=== PATIENT | male | born 1950 | race Caucasian/White ===

== ENCOUNTER 2019-12-05 08:43 | Outpatient (CLI) | payer MEDICARE, SELFPAY ==
--- NOTE | ~2019-12-05 | CT_ITS ---
EXAMINATION: CT chest abdomen pelvis w con DATE: 12/05/2019 09:11 INDICATION: History of rectal cancer with liver metastases TECHNIQUE: Transaxial computed tomographic images of the chest, abdomen, and pelvis were obtained aft er the administration of 100 cc of Omnipaque 350 intravenous contrast. The dose-length product (DLP) was 529.89 mGy-cm. Automated exposure control and iterative reconstruction technique were employed. COMPARISON: 09/05/2019, 03/03/2019, 03/24/2018 FINDINGS: CHEST CT: A right subclavian Port-A-Cath ends with its tip in the distal superior vena cava. There are patchy g roundglass opacities in the lower lobes as well as in the right upper lobe. Previously described lung nodules are obscured by airspace opacities. There is a small right pleural effusion. No pneumothorax is identified. There is bilateral gynecomastia, left greater than right. The heart size is normal. T here are bridging osteophytes at multiple levels in the spine, consistent with diffuse idiopathic ske letal hyperostosis (DISH). ABDOMEN/PELVIS CT: There are changes of left hemihepatectomy. No suspicious liver mass is identified. The spleen, pancre as, gallbladder, and adrenal glands are normal. The kidneys are unremarkable. No pathologically enlar ged abdominal or pelvic lymph nodes are identified. There is no free intraperitoneal gas or evidence of bowel obstruction. Surgical changes are noted in the rectum as well as in the small bowel. There i s a large fat-containing left inguinal hernia. There is moderate lumbar spondylosis. A moderate volu me of colonic stool is present. IMPRESSION: 1. Airspace opacities of the lower lobes and right upper lobe, consistent with multifocal pneumonia. 2. Airspace opacities of the lungs obscure previously described lung nodules which remain indetermina te. 3. Changes of left hemihepatectomy without evidence of metastatic disease in the abdomen or pelvis. 4. Small right pleural effusion. Reviewed, dictated and finalized at location A. IMPRESSION: 1. Airspace opacities of the lower lobes and right upper lobe, consistent with multifocal pneumonia. 2. Airspace opacities of the lungs obscure previously described lung nodules wh ich remain indeterminate. 3. Changes of left hemihepatectomy without evidence of metastatic disease in e abdomen or pelvis. 4. Small right pleural effusion.
== END 2019-12-05 08:44 | disposition home or self-care (01) ==
LOC: ANHIMG 08:46
PROVIDERS: Visit Provider Internal Medicine Hematology & Oncology
DX: C78.7 Secondary malignant neoplasm of liver and intrahepatic bile duct (principal); R91.8 Other nonspecific abnormal finding of lung field; Z98.890 Other specified postprocedural states; J90 Pleural effusion, not elsewhere classified
CPT/HCPCS: 71260; 74177; Q9967

== ENCOUNTER 2020-03-26 10:15 | Outpatient (CLI) | payer MEDICARE, SELFPAY ==
--- NOTE | ~2020-03-26 | CT_ITS ---
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 Automated exposure control and iterative reconstruction technique were employed. Exam dose: 524.51 mGy-cm total exam DLP. COMPARISON: 12/05/2019 CT chest abdomen pelvis FINDINGS: CHEST CT: There are consolidating infiltrates with air bronchograms in the superior segments of both lower lobe s. There is right perihilar consolidation with air bronchograms, with extension into the right upper lobe. Old pulmonary granulomatous disease is noted bilaterally. No significant new or enlarging pulmonary nodule since 12/05/2019. Coronary artery calcifications. Normal heart size. No hilar or mediastinal mass lesion or lymphadenop athy is evident. Normal heart size. No pericardial or pleural effusion. There is a right subclavian Port-A-Cath catheter in the superior vena cava. Small sliding hiatal hernia. . ABDOMEN/PELVIS CT: Status post left partial hepatectomy. No hepatic space-occupying mass lesion or bile duct or pancreat ic duct dilatation. No pancreatic mass lesion or calcification is evident. Normal splenic size. Normal morphology of the adrenal glands. The kidneys are unremarkable. No urinary tract calculus or hydroureteronephrosis. Normal caliber of the abdominal aorta. No intraperitoneal or retroperitoneal or pelvic mass lesion or adenopathy or ascites. Prostate enlargement and calcifications. There is diffuse thickening of the urinary bladder wall, also present on 12/05/2019. Large fat-containing left inguinal hernia. Suture line in the rectosigmoid area Normal appendix. No bowel obstruction or intraperitoneal free air. Prominent degenerative disc disease at C6-7. Diffuse idiopathic skeletal hyperostosis of the thoracic spine. No suspicious osteolytic or osteoblastic lesions are noted. IMPRESSION: Status post left hepatectomy without evidence of metastatic disease in the abdomen or pe lvis Bilateral pulmonary patchy consolidation; malignancy is not excluded. Right subclavian Port-A-Cath in superior vena cava Small sliding hiatal hernia Postoperative change of the rectosigmoid area Diffuse thickening of the urinary bladder wall Prostate enlargement and calcification Reviewed, dictated and finalized at [facility]. Reviewed, dictated and finalized at location B. IMPRESSION: Status post left hepatectomy without evidence of metastatic diseas e in the abdomen or pelvis Bilateral pulmonary patchy consolidation; malignancy is not excluded. Right subclavian Port-A-Cath in superior vena cava Small sliding hiatal hernia Postoperative change of the rectosigmoid area Diffuse thickening of the urinary bladder wall Prostate enlargement and calcification
== END 2020-03-26 10:16 | disposition home or self-care (01) ==
LOC: ANHIMG 10:21
PROVIDERS: Visit Provider Internal Medicine Hematology & Oncology
DX: C78.7 Secondary malignant neoplasm of liver and intrahepatic bile duct (principal); K44.9 Diaphragmatic hernia without obstruction or gangrene
CPT/HCPCS: 71260; 74177; Q9967

== ENCOUNTER 2020-06-18 08:45 | Outpatient (CLI) | payer MEDICARE, SELFPAY ==
--- NOTE | ~2020-06-18 | CT_ITS ---
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 TECHNIQUE: Computed tomography (CT) of the chest, abdomen, and pelvis was performed with 100 mL Omnip aque 350 intravenous contrast. Automated exposure control and iterative reconstruction technique were employed. The dose-length product was 757.98 mGy-cm. COMPARISON: CT chest, abdomen, and pelvis 03/26/2020, chest CT 03/03/19 FINDINGS: CHEST CT: There are perihilar airspace opacities in right lung with volume loss and varicose bronchiectasis, li elizabet radiation fibrosis. There is a 9 mm nodule in right lower lobe, worsened from 7 mm on 03/26/2020. Calcified bilateral lung nodules and calcified hilar and mediastinal lymph nodes are consistent with old granulomatous disease. There is a 3 mm nodule in left upper lobe. There is a 5 mm nodule in left upper lobe that previously measured 4 mm. 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 No pleural effusion. The hear t size is normal. There are coronary artery calcifications. There are calcifications of the aortic va lve. No pericardial effusion. There is mild wall thickening of the distal esophagus, likely esophagit is. There is a right internal jugular port with tip in superior vena cava. There are bridging endplat e osteophytes at multiple levels in the spine, consistent with diffuse idiopathic skeletal hyperostos is (DISH). ABDOMEN/PELVIS CT: There are changes of partial resection of left hepatic lobe. The gallbladder, spleen, pancreas, adren al glands, and kidneys are normal. There is a left inguinal hernia containing fat. There is an anasto mosis in the rectum. There is a widemouthed ventral hernia containing nonobstructed colon and small b owel. There are no dilated loops of bowel. The appendix is not visualized. A small bowel anastomosis is noted. There are no pathologically enlarged lymph nodes. There is no free intraperitoneal fluid. T here is severe lumbar spondylosis. IMPRESSION: 1. Worsened pulmonary nodules, consistent with metastatic disease. 2. Mild wall thickening of the distal esophagus, likely esophagitis. Reviewed, dictated and finalized at location A.
== END 2020-06-18 08:46 | disposition home or self-care (01) ==
PROVIDERS: PCP Internal Medicine Hematology & Oncology; Visit Provider Internal Medicine Hematology & Oncology
DX: C78.7 Secondary malignant neoplasm of liver and intrahepatic bile duct (principal); R91.1 Solitary pulmonary nodule; R93.3 Abnormal findings on diagnostic imaging of other parts of digestive tract
CPT/HCPCS: 71260; 74177; Q9967

== ENCOUNTER 2020-08-16 07:40 | Outpatient (CLI) | payer MEDICARE, SELFPAY ==
--- NOTE | ~2020-08-16 | CT_ITS ---
EXAMINATION: CT chest abdomen pelvis w con DATE: 08/16/2020 08:09 INDICATION: Rectal cancer metastatic to liver. TECHNIQUE: Computed tomography (CT) of the chest, abdomen, and pelvis was performed with 100 mL Omnip aque 350 intravenous contrast. Automated exposure control and iterative reconstruction technique were employed. The dose-length product was 895.56 mGy-cm. COMPARISON: CT 06/18/2020 FINDINGS: CHEST CT: There are airspace opacities in right upper lobe and superior segment right lower lobe with emc storage architect ural distortion and volume loss, consistent with radiation fibrosis. Similarly, there are airspace op acities with volume loss in superior segment left lower lobe, consistent with radiation fibrosis. Navin cified pulmonary nodules and calcified hilar and mediastinal lymph nodes are consistent with old gran ulomatous disease. There is a 10 mm nodule in right lung lower lobe that measured 9 mm on 06/18/2020. There is a stable 4 mm nodule in left upper lobe. No pleural effusion. The heart size is normal. Ther e are coronary artery calcifications. There are calcifications of aortic valve. No pericardial effusi on. There is a right internal jugular port with tip in superior vena cava. There is wall thickening o f distal esophagus. There are bridging endplate osteophytes at multiple levels in the spine, consiste nt with diffuse idiopathic skeletal hyperostosis (DISH). ABDOMEN/PELVIS CT: There are changes of partial resection of left hepatic lobe. The gallbladder and pancreas are normal. Again seen is a 5 mm low-attenuation mass in the spleen, likely benign. The adrenal glands and kidne ys are normal. There is a left inguinal hernia containing fat. There is wall thickening of the bladde r, likely secondary to chronic outlet obstruction from the mildly enlarged prostate. There are surgic al changes of the rectum. There are no dilated loops of bowel. The appendix is normal. There are no p athologically enlarged lymph nodes. There is no free intraperitoneal fluid. There is severe lumbar sp ondylosis. IMPRESSION: 1. Stable pulmonary nodules, consistent with metastatic disease. 2. Wall thickening of distal esophagus, likely esophagitis. Reviewed, dictated and finalized at location A. BALL TRIMMER
== END 2020-08-16 07:41 | disposition home or self-care (01) ==
PROVIDERS: Visit Provider Internal Medicine Hematology & Oncology
DX: C20 Malignant neoplasm of rectum (principal); C78.7 Secondary malignant neoplasm of liver and intrahepatic bile duct; I25.10 Atherosclerotic heart disease of native coronary artery without angina pectoris; R91.8 Other nonspecific abnormal finding of lung field; R16.1 Splenomegaly, not elsewhere classified; Z90.89 Acquired absence of other organs; K40.90 Unilateral inguinal hernia, without obstruction or gangrene, not specified as recurrent; M47.816 Spondylosis without myelopathy or radiculopathy, lumbar region
CPT/HCPCS: 71260; 74177; Q9967

== ENCOUNTER 2020-11-18 10:03 | Outpatient (CLI) | payer MEDICARE, SELFPAY ==
--- NOTE | ~2020-11-18 | CT_ITS ---
EXAMINATION: CT chest abdomen pelvis w con EXAM DATE: 11/18/2020 10:41 INDICATION: Malignant neoplasm of overlapping sites of rectum. TECHNIQUE: Spiral CT of the chest, abdomen and pelvis was performed following intravenous injection o f 100 mL Omnipaque 350. Axial, coronal and sagittal images were reviewed. Coronal maximum intensity pixel images of chest reviewed. The dose-length product (DLP) for this examination was 793.09 mGy-c m. The exposure was tailored according to patient size (auto mA exposure control), and iterative rec onstruction (ASIR) was used as additional dose reduction technique. Comparison is made to prior exami nation from 08/16/2020, 06/18/2020. FINDINGS: CHEST: There is a right-sided portacatheter. There is no interval change in the bilateral perihilar heterogeneously enhancing masslike opacities which are difficult to measure due to their irregular sh ape. There is slight increase in volume of smaller right infrahilar nodule measuring 1.2 cm, was abou t 9 mm back in May. There are no pleural or pericardial effusions. Tracheobronchial tree is p atent. There is no mediastinal, hilar or axillary lymphadenopathy. There is no pneumothorax. He art normal in size. There is moderate coronary arterial calcification, arterial sclerosis. ABDOMEN PELVIS: The liver, spleen, adrenal glands and pancreas are unremarkable. Gallbladder is unre markable. No biliary obstruction. Portal and splenic veins are patent. Kidneys enhance symmetrical ly. There is no hydronephrosis. The prostate is unremarkable. There is diffuse moderate chronic bladder wall thickening, likely chronic cystitis, could be radiatio n cystitis. This is more pronounced on the left side than on previous examination. There is no retro peritoneal or pelvic lymphadenopathy. There is large left inguinal fat-containing hernia. Possible right inguinal hernia repair. The appendix is normal. Rectosigmoid and small bowel anastomosis sites. The stomach and small bowel are unremarkable. There is expected amount of colonic stool. No free intraperitoneal gas. There are no osteoblastic or osteolytic lesions identified. IMPRESSION: 1. Stable bilateral perihilar masses. 2. Slight increase in size of smaller right infrahilar metastatic lesion. 3. Some progression in moderate bladder wall thickening, chronic cystitis, could be radiation relate d change. Can't exclude acute cystitis. 4. Largest left inguinal fat-containing hernia. Reviewed, dictated and finalized at location A. JOURNEYMAN IMPRESSION: 1. Stable bilateral perihilar masses. 2. Slight increase in size of smaller right infrahilar metastatic lesion. 3. Some progression in moderate bladder wall thickening, chronic cystitis, cou ld be radiation related change. Can't exclude acute cystitis. 4. Largest left inguinal fat-containing hernia.
== END 2020-11-18 10:04 | disposition home or self-care (01) ==
PROVIDERS: Visit Provider Internal Medicine Hematology & Oncology
DX: C21.8 Malignant neoplasm of overlapping sites of rectum, anus and anal canal (principal); C78.01 Secondary malignant neoplasm of right lung; N32.9 Bladder disorder, unspecified; N30.80 Other cystitis without hematuria; K40.90 Unilateral inguinal hernia, without obstruction or gangrene, not specified as recurrent
CPT/HCPCS: 71260; 74177; Q9967

== ENCOUNTER 2020-12-05 07:24 | Outpatient (CLI) | payer MEDICARE, SELFPAY ==
--- NOTE | ~2020-12-05 | PE_ITS ---
EXAMINATION: PET skull to mid thigh DATE: 12/05/2020 09:24 INDICATION: Rectal cancer TECHNIQUE: Blood glucose level was 94 mg/dL. 10.805 mCi of 18-fluorodeoxyglucose (18-FDG) was adminis tered i.v. Low dose computed tomography (CT) images were acquired from the base of the brain to the p roximal thighs for attenuation correction and anatomic localization. Positron emission tomography (PE T) images were acquired in the same distribution beginning 62 minutes after injection. Images includi ng fused PET/CT images were reconstructed in axial, coronal, and sagittal planes. Automated exposure control technique was employed. The dose-length product was 949.19mGy-cm. COMPARISON: CT studies dated 11/18/2020 and 08/16/2020 and PET/CT dated 10/21/2016 FINDINGS: Head/neck: There is symmetric increased activity in the oral cavity, palatine tonsils, parotid and submandibular glands, longus capitis muscles, laryngeal muscles and ocular muscles without CT correlate, likely ph ysiologic. No pathologically enlarged cervical lymphadenopathy or suspicious foci of increased FDG up take in the visualized head or neck. Chest: Again seen are regions of nonspecific consolidation with volume loss in the anterior segment of the r ight upper lobe, superior segment of the right lower lobe and superior segment of the left lower lobe , each with associated increased FDG uptake with maximal SUV of 4.2, 3.9 and 3.5 respectively. The in creased FDG uptake could be due to malignancy, other infectious or inflammatory etiologies or some co mbination thereof. There is also increased FDG uptake with maximal SUV of 4.1 associated with a more suspicious enlarging now 1.4 x 1.2 cm infrahilar nodule in the right lower lobe which has slowly incr eased in size from 4 mm on 09/05/2019 consistent with progression of metastatic disease. No other marco picious new, enlarging or FDG avid nodules or thoracic lymphadenopathy. Calcified nodule at the basil ar right lower lobe along with calcified bilateral hilar and mediastinal lymph nodes consistent with old granulomatous disease. Mild cardiomegaly. Atherosclerotic coronary artery calcification. No peric ardial or pleural effusion. Right subclavian central venous port catheter with distal tip at the supe rior cavoatrial junction. Abdomen/pelvis/proximal thighs: Physiologic renal accumulation and excretion of FDG activity in the kidneys, bladder and along portio ns of ureters. There is diffuse relatively smooth bladder wall thickening to at least in part to inco mplete distention but could also result from either acute or chronic cystitis including radiation cys titis. Normal degree and heterogenous pattern of increased uptake throughout the liver without radiol ogic correlate or dominant FDG avid lesion. Suture line along the periphery of the lateral segment of left hepatic lobe consistent with partial hepatectomy for resection of a prior likely metastatic FDG avid mass seen on 10/21/2016. The gallbladder, pancreas, spleen and bilateral adrenal glands are jason l. Postoperative change of prior bowel surgery with anastomotic suture line at the distal rectum romario g a loop of small bowel in the right pelvis. Mild uptake scattered throughout the bowels without radi ologic correlate, also likely physiologic. No other abnormal foci of increased FDG uptake or patholog ically enlarged lymphadenopathy in the abdomen, pelvis or proximal thighs. Large fat-containing left inguinal hernia. Postoperative change of likely prior right inguinal hernia repair. Small [place] f at containing umbilical hernia. Musculoskeletal: Moderate scattered degenerative skeletal changes. There are bridging osteophytes at multiple levels i n the thoracic spine, consistent with diffuse idiopathic skeletal hyperostosis (DISH). No suspicious lytic, blastic or FDG avid bone lesions. Likely physiologic. Likely symmetric diffuse mild increased muscular act
[2020-12-05 07:54] LABS: Glucose Point of Care 94 (65-105)
== END 2020-12-05 07:25 | disposition home or self-care (01) ==
PROVIDERS: Visit Provider Internal Medicine Hematology & Oncology
DX: C21.8 Malignant neoplasm of overlapping sites of rectum, anus and anal canal (principal); K40.90 Unilateral inguinal hernia, without obstruction or gangrene, not specified as recurrent
CPT/HCPCS: 78815; 82948; A9552

== ENCOUNTER → 2021-04-02 09:17 | Outpatient (CLI) | payer MEDICARE, SELFPAY ==
--- NOTE | ~2021-04-02 | CT_ITS ---
EXAMINATION: CT chest abdomen pelvis w con DATE: 04/02/2021 09:56 INDICATION: Malignant neoplasm of rectum; restaging TECHNIQUE: Computed tomography (CT) of the chest, abdomen, and pelvis was performed with 100 cc Omnip aque 350 intravenous contrast. Automated exposure control and iterative reconstruction technique were employed. Exam dose: 1421.70 mGy-cm total exam DLP. COMPARISON: 11/18/2020 CT chest abdomen pelvis FINDINGS: CHEST CT: Stable bilateral perihilar masses since 11/18/2020. No interval pulmonary infiltrate or consolidation o r pulmonary mass lesion. Normal heart size. Prominent coronary artery calcifications. No pericardial or pleural effusion. No hilar or mediastinal mass lesion or adenopathy is noted otherwise. Small sliding hiatal hernia. ABDOMEN/PELVIS CT: The liver, spleen, pancreas, gallbladder, bile ducts, pancreatic duct and adrenal glands are unremark able. No urinary tract calculus or hydroureteronephrosis. There is moderate diffuse thickening of the urina ry bladder wall, greater on the right. There is prostate enlargement and calcification. There is a suture line in the small bowel the right lower quadrant. There is a suture line in the rectum; history of rectal carcinoma. No local recurrence or pelvic intr aperitoneal or retroperitoneal lymphadenopathy or ascites is noted. No bowel obstruction, bowel wall thickening, pneumatosis or intraperitoneal free air. Wide fat-containing umbilical hernia. Large fat-containing left inguinal hernia. No suspicious osteolytic or osteoblastic lesions are noted. Diffuse idiopathic skeletal hyperostosis of the thoracic spine and mild to moderate degenerative disc disease of the lumbar spine. IMPRESSION: Stable bilateral perihilar masses since 11/18/2020 Small sliding hiatal hernia Postoperative changes of the small bowel and rectum; no recurrence or metastatic disease is evident Large fat-containing left inguinal hernia and wide fat-containing umbilical hernia Reviewed, dictated and finalized at [facility]. Reviewed, dictated and finalized at location B. IMPRESSION: Stable bilateral perihilar masses since 11/18/2020 Small sliding hiatal hernia Postoperative changes of the small bowel and rectum; no recurrence or metastati c disease is evident Large fat-containing left inguinal hernia and wide fat-containing umbilical her zackary
== END ==
PROVIDERS: PCP Family Medicine; Visit Provider Radiology Radiation Oncology
DX: C20 Malignant neoplasm of rectum (principal); C78.00 Secondary malignant neoplasm of unspecified lung; K44.9 Diaphragmatic hernia without obstruction or gangrene; Z98.890 Other specified postprocedural states; K40.90 Unilateral inguinal hernia, without obstruction or gangrene, not specified as recurrent; K42.9 Umbilical hernia without obstruction or gangrene
CPT/HCPCS: 71260; 74177; Q9967

== ENCOUNTER 2021-06-10 09:50 | Emergency (ER) | payer MEDICARE, SELFPAY ==
[2021-06-10 09:59] VITALS: BP 118/71; PULSE 51; RESP 16; TEMP 36.7; O2SAT 99
--- NOTE | 2021-06-10 10:41 | ED.EYEPROB ---
HPI - Eye Problem General Chief complaint: Eye Problems Stated complaint: left eye redness/painful Source: patient and RN notes reviewed Limitations: no limitations History of Present Illness HPI Narrative: The patient, who does not wear eyeglasses or contacts, presents with left eye discomfort. Patient states he has a shorter 2-day history of left eye redness, scant discharge, grainy sensation. A week before that the patient attributes and recalls he was doing outdoor work wearing sunglasses and may have been exposed to foreign body; but he was fine for day or 2 beforeonset of the symptoms. No injury, photophobia; symptoms are mild, unrelieved with irrigation he tried. Patient advised to follow-up with eye doctor Related Data Home Medications Medication Instructions Recorded Confirmed prochlorperazine maleate 10 mg PO Q6H PRN 07/12/19 05/30/21 Allergies Allergy/AdvReac Type Severity Reaction Status Date / Time No Known Allergies Allergy Verified 05/02/21 09:22 Review of Systems Review of Systems: General/Constitutional: No weight loss,fever Eyes: REPORTS: Redness,discharge Ears/Nose/Throat: No: Epistaxis,ear discharge Respiratory: Denies: Hemoptysis Gastrointestinal: No Vomiting, Bleeding-rectal Skin: No Lumps, eruption Neurologic: No Focal Weakness,Sz Hematologic: Denies: Petechiae/Purpura Psychiatric: No: Suicida ideationl All Other Systems: Reviewed and Negative [facility] Past Medical History Medical History (Updated 06/10/21 @ 10:44 by Graeme Sotomayor MD) Rectal cancer metastasized to liver Rectal cancer metastasized to lung Surgical History Surgical History (Updated 02/04/21 @ 10:07 by Wiliam MarcanoMD) H/O hemicolectomy H/O resection of liver Family History Family History Mother Family history of Alzheimer's disease Father Family history of heart disease in male family member before age 55 Acute myocardial infarction Other Family history of cardiovascular disease Social History Social History (Updated 01/07/21 @ 15:41 by America Combs) Social History: Single Smoking status: Never smoker Second hand tobacco smoke exposure: No Alcohol intake: current Drinks per week: 2 Substance use: never Substance use type: does not use 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 Gender identity (if verbalized by the patient): Male Sexual Orientation (if Verbalized by the Patient): Straight or Heterosexual Comments At time of signature, agree with nursing past medical, surgical, social and family history. There is no relevant family history pertinent to the presenting complaint Exam Narrative: General Appearance: Well appearing, Well nourished, No distress EYE: PERRLA, [id number] normal), EOMI, Lens normal), Normal corneas , No fluorescein uptake, anterior chamber deep, Conjunctiva injection Ears: External ear normal, Auditory canal normal Nose: Normal nose, Nares clear Mouth/Throat: Normal appearing, Normal lips Neck: Supple, No adenopathy Respiratory: Airway patent, No respiratory distress Skin: Warm, Dry Neurological: A&O x3, CN II-X intact Psychiatric: Normal mood, Normal affect Course Vital Signs Vital signs: Vital Signs Temperature 98.1 F 06/10/21 09:59 Pulse Rate 51 L 06/10/21 09:59 Respiratory Rate 16 06/10/21 09:59 Blood Pressure 118/71 06/10/21 09:59 Pulse Oximetry 99 06/10/21 09:59 Temperature 98.1 F 06/10/21 09:59 Pulse Rate 51 L 06/10/21 09:59 Respiratory Rate 16 06/10/21 09:59 Blood Pressure 118/71 06/10/21 09:59 Pulse Oximetry 99 06/10/21 09:59 Discharge Plan Discharge Clinical Impression: Bacterial conjunctivitis Patient Disposition: Home, Self-Care Condition: Stable Instructions: Conjunctivitis (ED) Additional Instructions: See eye doctor in follow-up this week, using julio
== END 2021-06-10 11:00 | disposition home or self-care (01) ==
PROVIDERS: Emergency Provider Emergency Medicine
DX: H10.9 Unspecified conjunctivitis (principal)
CPT/HCPCS: 99213; A9270; G0463

== ENCOUNTER 2021-07-01 08:07 | Outpatient (CLI) | payer MEDICARE, SELFPAY ==
--- NOTE | ~2021-07-01 | CT_ITS ---
EXAMINATION: CT chest abdomen pelvis w con EXAM DATE: 07/01/2021 08:40 INDICATION: Rectal Cancer Metastasized To Liver . TECHNIQUE: Spiral CT of the chest, abdomen and pelvis was performed following intravenous injection o f 100 mL Omnipaque 350. Axial, coronal and sagittal images chest, abdomen and pelvis were reviewed. Coronal maximum intensity pixel images of chest reviewed. The dose-length product (DLP) for this ex amination was 606.57 mGy-cm. The exposure was tailored according to patient size (auto mA exposure c ontrol), and iterative reconstruction (ASIR) was used as additional dose reduction technique. Compari son is made to prior examination from 04/02/21. FINDINGS: CHEST: There is a right-sided portacatheter. There is overall mild interval increase in size of the bilateral perihilar masses. Interval development of ill-defined right infrahilar airspace disease lena ng the bronchovascular markings likely the same process. There are no pleural or pericardial effusion s. Tracheobronchial tree is patent. There is no mediastinal, hilar or axillary lymphadenopathy. There is no pneumothorax. Heart normal in size. There is moderate coronary arterial calcificatio n, arterial sclerosis. No central pulmonary emboli. ABDOMEN PELVIS: The liver, spleen, adrenal glands and pancreas are unremarkable. Gallbladder is unre markable. No biliary obstruction. Portal and splenic veins are patent. Kidneys enhance symmetrical ly. There is no hydronephrosis. The prostate is unremarkable. Asymmetric mild thickening of the a nterior and right-sided bladder without focal nodularity or mass. Could be radiation related change. Similar appearance on prior study. There is subcarinal lymph node measuring 1.7 x 1.3 cm, within nor mal size limits for location but increased in size compared to prior study. There is large left-side d fat-containing hernia. There is abdominal wall dehiscence at the umbilicus. The appendix is normal. The stomach and small bowel are unremarkable. There is expected amount of c olonic stool. There is rectosigmoid anastomosis. No free intraperitoneal gas. There are no osteobla stic or osteolytic lesions identified. Interval development of subacute appearing left sacral insuff iciency fracture. IMPRESSION: 1. Mild increase in size of perihilar masses and development of infrahilar infiltrative airspace dis ease along peribronchial vascular structures. 2. Increase in size of infracarinal and precarinal lymph nodes, still within normal size limits. Att ention to this on follow-up exam. 3. Development of left sacral insufficiency fracture. 4. Large left inguinal fat-containing hernia. 5. No liver masses on this exam. Reviewed, dictated and finalized at location A. IMPRESSION: 1. Mild increase in size of perihilar masses and development of infrahilar inf iltrative airspace disease along peribronchial vascular structures. 2. Increase in size of infracarinal and precarinal lymph nodes, still within n ormal size limits. Attention to this on follow-up exam. 3. Development of left sacral insufficiency fracture. 4. Large left inguinal fat-containing hernia. 5. No liver masses on this exam.
== END 2021-07-01 08:08 | disposition home or self-care (01) ==
LOC: ANHIMG 08:11
PROVIDERS: PCP Family Medicine; Visit Provider Internal Medicine Hematology & Oncology
DX: K40.90 Unilateral inguinal hernia, without obstruction or gangrene, not specified as recurrent (principal)
CPT/HCPCS: 71260; 74177; Q9967

== ENCOUNTER 2021-11-10 07:59 | Outpatient (CLI) | payer MEDICARE, SELFPAY ==
--- NOTE | ~2021-11-10 | CT_ITS ---
EXAMINATION: CT chest abdomen pelvis w con DATE: 11/10/2021 08:32 INDICATION: Metastatic rectal cancer TECHNIQUE: Transaxial computed tomographic images of the chest, abdomen, and pelvis were obtained aft er the administration of 100 cc of Omnipaque 350 intravenous contrast. The dose-length product (DLP) was 584.50 mGy-cm. Automated exposure control and iterative reconstruction technique were employed. COMPARISON: 07/01/2021 FINDINGS: CHEST CT: There are chronic and unchanged airspace opacities of the right upper lobe and superior segment of th e right lower lobe. Also noted are chronic, stable airspace opacities with volume loss in the superio r segment of the left lower lobe. Airspace opacities and architectural distortion of the right lower lobe persist with slight interval worsening. There is no pleural effusion or pneumothorax. A right quiles bclavian Port-A-Cath ends with its tip in the distal superior vena cava. There is a stable 4 mm nodul e of the left upper lobe. No new pulmonary nodules are identified. There is subcarinal lymphadenopath y with interval worsening. Calcified coronary artery atherosclerosis is noted. The heart size is norm al. There are bridging osteophytes at multiple levels in the spine, consistent with diffuse idiopathi c skeletal hyperostosis (DISH). ABDOMEN/PELVIS CT: There is partial resection of the left hepatic lobe. The liver is otherwise unremarkable. The spleen, pancreas, gallbladder, and adrenal glands are normal. The kidneys are unremarkable. Bowel surgical c hanges are noted in the pelvis. There is wall thickening of the urinary bladder. No pathologically en larged abdominal or pelvic lymph nodes are identified. There is no free intraperitoneal gas or eviden ce of bowel obstruction. A moderate volume of colonic stool is present. There is a large left inguina l hernia containing fat. There is a small umbilical hernia with short segments of nonobstructed large and small bowel. There is severe lumbar spondylosis. IMPRESSION: 1. Subcarinal lymphadenopathy with interval worsening, consistent with metastatic disease. 2. Increasing airspace opacities and architectural distortion of the right lower lobe, possible worse radu metastatic disease. No additional stable pulmonary nodules are consistent with metastatic diseas e 3. Small umbilical hernia containing a short segment of nonobstructed large and small bowel. Reviewed, dictated and finalized at location F. TE MANAGER IMPRESSION: 1. Subcarinal lymphadenopathy with interval worsening, consistent with metastat ic disease. 2. Increasing airspace opacities and architectural distortion of the right lowe r lobe, possible worsening metastatic disease. No additional stable pulmonary n odules are consistent with metastatic disease 3. Small umbilical hernia containing a short segment of nonobstructed large and small bowel.
== END 2021-11-10 08:00 | disposition home or self-care (01) ==
LOC: ANHIMG 08:03
PROVIDERS: PCP Family Medicine; Visit Provider Internal Medicine Hematology & Oncology
DX: C21.8 Malignant neoplasm of overlapping sites of rectum, anus and anal canal (principal); K42.9 Umbilical hernia without obstruction or gangrene; R59.1 Generalized enlarged lymph nodes; M48.19 Ankylosing hyperostosis [Forestier], multiple sites in spine; M47.816 Spondylosis without myelopathy or radiculopathy, lumbar region
CPT/HCPCS: 71260; 74177; Q9967

== ENCOUNTER 2021-12-14 16:30 | Emergency (ER) | payer MEDICARE, SELFPAY ==
[2021-12-14 16:38] VITALS: BP 126/70; PULSE 58; RESP 16; TEMP 36.6; O2SAT 98
--- NOTE | 2021-12-14 17:15 | ED.EYEPROB ---
HPI - Eye Problem General Chief complaint: Eye Problems Stated complaint: right eye injury Time Seen by Provider: 12/14/21 17:00 Source: patient and RN notes reviewed Mode of arrival: ambulatory Limitations: no limitations History of Present Illness HPI Narrative: Patient presents today complaining of a branch poking him in the right eye 2 hours prior to arrival while he was cleaning brush. He flushed with some eyedrops. Denies vision changes, photophobia, foreign body sensation. Currently rates his pain 5/10. MD chief complaint: eye pain Related Data Home Medications Medication Instructions Recorded Confirmed prochlorperazine maleate 10 mg PO Q6H PRN 07/12/19 12/14/21 Allergies Allergy/AdvReac Type Severity Reaction Status Date / Time No Known Allergies Allergy Verified 12/14/21 16:43 Review of Systems Review of Systems: CONSTITUTIONAL: Denies body aches, fever, chills, or sweats. EYES: Denies visual changes, or discharge.+ Right eye redness and pain ENT: Denies rhinorrhea, congestion, sore throat, or otalgia. CARDIOVASCULAR: Denies chest pain, palpitations, or edema. RESPIRATORY: Denies cough or dyspnea. GASTROINTESTINAL: Denies abdominal pain, nausea, vomiting, or diarrhea. GENITOURINARY: Denies dysuria or hematuria. SKIN: Denies rash, itching, or wounds. MUSCULOSKELETAL: Denies back pain, joint pain, or myalgia. NEUROLOGIC: Denies headache, numbness, tingling, or weakness. PSYCH: Denies depression or anxiety. [facility] Past Medical History Medical History Rectal cancer metastasized to liver Rectal cancer metastasized to lung Surgical History Surgical History H/O hemicolectomy H/O resection of liver Family History Family History Mother Family history of Alzheimer's disease Father Family history of heart disease in male family member before age 55 Acute myocardial infarction Other Family history of cardiovascular disease Social History Social History (Reviewed 12/14/21 @ 17:16 by DAYAN Banda, Kallie Social History: Single Smoking status: Never smoker Second hand tobacco smoke exposure: No Alcohol intake: current Drinks per week: 2 Substance use: never Substance use type: does not use 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 Gender identity (if verbalized by the patient): Male Sexual Orientation (if Verbalized by the Patient): Straight or Heterosexual Comments At time of signature, I have reviewed and agree with nursing past medical, surgical, social and family history unless otherwise noted. Please see nursing chart for further information. There is no relevant family history pertinent to the presenting complaint Exam Narrative: GENERAL: Well-appearing, well-nourished, and in no acute distress. HEAD: Normocephalic, atraumatic. EYES: EOMI. PERRL. Right eye: Lateral subconjunctival hemorrhage noted. Fluorescein uptake noted. See procedure note. Left eye normal. Lids and lashes normal bilaterally. ENT: Mucous membranes pink and moist. NECK: Normal AROM. CHEST: No respiratory distress. EXTREMITIES: Normal range of motion. No edema. SKIN: Warm, dry, no rash. Capillary refill normal. Normal skin turgor. NEURO: No focal deficits. Alert and oriented x3. Gait steady. PSYCH: Normal affect. No signs of depression or anxiety. Course Course Level of Care: Express Care Visit Vital Signs Vital signs: Vital Signs Temperature 97.8 F 12/14/21 16:38 Pulse Rate 58 L 12/14/21 16:38 Respiratory Rate 16 12/14/21 16:38 Blood Pressure 126/70 12/14/21 16:38 Pulse Oximetry 98 12/14/21 16:38 Temperature 97.8 F 12/14/21 16:38 Pulse Rate 58 L 12/14/21 16:38 Respiratory Rate 16 12/14/21 16:38 Blood Pressure 126/70 12/14
== END 2021-12-14 17:25 | disposition home or self-care (01) ==
PROVIDERS: Emergency Provider Nurse Practitioner; PCP Family Medicine
DX: S05.01XA Injury of conjunctiva and corneal abrasion without foreign body, right eye, initial encounter (principal); W22.8XXA Striking against or struck by other objects, initial encounter; Z85.048 Personal history of other malignant neoplasm of rectum, rectosigmoid junction, and anus; Z85.05 Personal history of malignant neoplasm of liver; Z85.118 Personal history of other malignant neoplasm of bronchus and lung
CPT/HCPCS: 99213; A9270; G0463

== ENCOUNTER 2022-02-03 08:47 | Outpatient (CLI) | payer MEDICARE, SELFPAY ==
--- NOTE | ~2022-02-03 | CT_ITS ---
EXAMINATION: CT chest abdomen pelvis w con DATE: 02/03/2022 09:12 INDICATION: Malignant neoplasm of overlapping sites of rectum, anus, and anal canal. TECHNIQUE: Computed tomography (CT) of the chest, abdomen, and pelvis was performed with 100 mL Omnip aque 300 intravenous contrast. Automated exposure control and iterative reconstruction technique were employed. The dose-length product was 635.01 mGy-cm. COMPARISON: CT 11/10/2021, 09/05/19, 12/05/19, 12/29/18, 04/02/21, 07/01/21 FINDINGS: CHEST CT: There are airspace opacities in the superior segment left lower lobe with architectural distortion, c onsistent with radiation fibrosis. Calcified lung nodules and calcified hilar and mediastinal lymph n odes are consistent with old granulomatous disease. There are airspace opacities in perihilar right u pper lobe and right lower lobe with architectural distortion and varicose bronchiectasis, consistent with radiation fibrosis. There are airspace opacities in basilar right lower lobe centered at the bro nchopulmonary interstitium, consistent with radiation fibrosis. No pleural effusion. The heart size i s normal. There are coronary artery calcifications. No pericardial effusion. There is subcarinal lymp hadenopathy measuring 3.1 x 2.1 cm the previously measured 2.9 x 2.0 cm. There is a right internal ju gular port with tip at superior cavoatrial junction. ABDOMEN/PELVIS CT: There are changes of partial resection of left hepatic lobe. The gallbladder, spleen, pancreas, adren al glands, and left kidney are normal. There is a 4 mm cyst in right kidney. There is a left inguinal hernia containing fat. There is chronic wall thickening of the bladder, which may be changes of radi ation therapy. There is an anastomosis in the rectum. There are no dilated loops of bowel. There are no pathologically enlarged lymph nodes. There is an anastomosis in small bowel. There is no free intr aperitoneal fluid. There is a healing insufficiency fracture of left sacral ala. IMPRESSION: 1. Stable subcarinal lymphadenopathy, consistent with metastatic disease. Reviewed, dictated and finalized at location B.
== END 2022-02-03 08:48 | disposition home or self-care (01) ==
PROVIDERS: PCP Family Medicine; Visit Provider Internal Medicine Hematology & Oncology
DX: C21.8 Malignant neoplasm of overlapping sites of rectum, anus and anal canal (principal)
CPT/HCPCS: 71260; 74177; Q9967

== ENCOUNTER 2022-05-05 08:22 | Outpatient (CLI) | payer MEDICARE, SELFPAY ==
--- NOTE | ~2022-05-05 | CT_ITS ---
EXAMINATION: CT chest abdomen pelvis w con DATE: 05/05/2022 08:45 INDICATION: Malignant neoplasm of overlapping sites of the rectum, anus, TECHNIQUE: Transaxial computed tomographic images of the chest, abdomen, and pelvis were obtained aft er the administration of 100 cc of Omnipaque 350 intravenous contrast. The dose-length product (DLP) was 953.11 mGy-cm. Automated exposure control and iterative reconstruction technique were employed. COMPARISON: 02/03/2022 FINDINGS: CHEST CT: There are stable right perihilar airspace opacities in the upper and lower lobes, airspace opacities in the right lower lobe, and airspace opacities in the superior segment of the left lower lobe with v aricose bronchiectasis, consistent with radiation change. There is mild elevation of the right hemidi aphragm, chronic. There has been no significant interval change. Subcarinal lymphadenopathy measuring approximately 3.1 x 2.0 cm is stable. No new thoracic lymphadenopathy is identified. The heart size is normal. There is calcified coronary artery atherosclerosis. There are bridging osteophytes at mult iple levels in the spine, consistent with diffuse idiopathic skeletal hyperostosis (DISH). ABDOMEN/PELVIS CT: There is a small sliding hiatal hernia. There are changes of left hemihepatectomy. The spleen, pancre as, gallbladder, and adrenal glands are normal. The left kidney is unremarkable. There is a 4 mm cyst in the upper pole of the right kidney. No pathologically enlarged abdominal or pelvic lymph nodes ar e identified. There is no free intraperitoneal gas or evidence of bowel obstruction. There is a large left inguinal hernia containing fat. Surgical anastomosis noted in the rectum and the small bowel. T here is moderate lumbar spondylosis. IMPRESSION: 1. Stable subcarinal lymphadenopathy, consistent with metastatic disease. No new metastatic disease i dentified. Reviewed, dictated and finalized at location A. IMPRESSION: 1. Stable subcarinal lymphadenopathy, consistent with metastatic disease. No ne w metastatic disease identified.
== END 2022-05-05 08:23 | disposition home or self-care (01) ==
LOC: ANHIMG 08:23
PROVIDERS: PCP Family Medicine; Visit Provider Internal Medicine Hematology & Oncology
DX: C21.8 Malignant neoplasm of overlapping sites of rectum, anus and anal canal (principal); R59.0 Localized enlarged lymph nodes
CPT/HCPCS: 71260; 74177; Q9967

== ENCOUNTER 2022-07-02 09:20 | Emergency (ER) | payer MEDICARE, SELFPAY ==
[2022-07-02 09:29] VITALS: BP 114/94; PULSE 56; RESP 16; TEMP 36.3; O2SAT 98
--- NOTE | 2022-07-02 09:55 | ED.DENTAL ---
HPI - Dental/Oral General Chief complaint: Dental/Oral Stated complaint: tooth pain Time Seen by Provider: 07/02/22 10:12 Source: patient Mode of arrival: ambulatory Limitations: no limitations History of Present Illness HPI Narrative: 72-year-old male presents with concern for right upper dental pain. He reports he is currently undergoing chemotherapy and has had much dental decay due to this. Reports he had some right facial swelling and pain for which he took a few doses of his friend's cephalexin that helped improve the pain. He reports he is due for chemo and his chemo doctor would not do chemo until he finished a course of antibiotics for his dental pain. MD Complaint: tooth pain Related Data Home Medications Medication Instructions Recorded Confirmed prochlorperazine maleate 10 mg 10 mg PO Q6H PRN Nausea And 07/12/19 07/02/22 tablet Vomiting Allergies Allergy/AdvReac Type Severity Reaction Status Date / Time No Known Allergies Allergy Verified 07/02/22 09:47 Review of Systems Review of Systems: CONSTITUTIONAL: Denies malaise, chills, sweats, or fever. EYES: Denies visual changes ENT: Denies rhinorrhea, congestion, sinus pain, otalgia or sore throat. Reports right upper dental pain CARDIOVASCULAR: Denies chest pain, palpitations RESPIRATORY: Denies cough or dyspnea. SKIN: Denies rash or itching. MUSCULOSKELETAL: Denies myalgia. NEUROLOGIC: Denies numbness, weakness, or headache. All systems reviewed & are unremarkable except as noted in HPI and below PMFSH Past Medical History Medical History Rectal cancer metastasized to liver Rectal cancer metastasized to lung Surgical History Surgical History H/O hemicolectomy H/O resection of liver Family History Family History Mother Family history of Alzheimer's disease Father Family history of heart disease in male family member before age 55 Acute myocardial infarction Other Family history of cardiovascular disease Social History Social History Social History: Single Smoking status: Never smoker Second hand tobacco smoke exposure: No Alcohol intake: current Drinks per week: 2 Substance use: never Substance use type: does not use 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 Gender identity (if verbalized by the patient): Male Sexual Orientation (if Verbalized by the Patient): Straight or Heterosexual Comments At time of signature, agree with nursing past medical, surgical, social and family history. There is no relevant family history pertinent to the presenting complaint Exam Narrative: GENERAL: Well-appearing, well-nourished, and in no acute distress. HEAD: Normocephalic, atraumatic. EYES: PERRLA, sclera clear ENT: Nares clear, turbinates pink, no rhinorrhea or epistaxis. Mucous membranes moist. TM pearly coffey with sharp light reflex bilaterally; no tragal tenderness. Oropharynx without erythema or lesions. Tonsils not enlarged and without exudate. Missing teeth, broken teeth, caries. No visible abscesses or facial swelling noted NECK: Supple. No lymphadenopathy. CHEST: No respiratory distress. Speaks in full sentences. HEART: Regular rate and rhythm. SKIN: Warm, dry, no visible rash. NEURO: Alert and oriented x3. PSYCH: Normal mood and affect Course Course Emergency Course: Patient is aware of diagnosis, understands and agrees to treatment plan. Anticipatory guidance given. Patient agrees to follow-up as directed and is aware of reasons to seek care at the emergency department. Portions of this record may have been created with voice recognition software Level of Care: Express Care Visit Vital Signs Vital signs: Vital Signs Temperature
== END 2022-07-02 10:29 | disposition home or self-care (01) ==
PROVIDERS: Emergency Provider Nurse Practitioner; PCP Family Medicine
DX: K08.89 Other specified disorders of teeth and supporting structures (principal); Z85.118 Personal history of other malignant neoplasm of bronchus and lung; Z85.05 Personal history of malignant neoplasm of liver; Z85.048 Personal history of other malignant neoplasm of rectum, rectosigmoid junction, and anus
CPT/HCPCS: 99213; G0463

== ENCOUNTER 2022-09-08 08:32 | Outpatient (CLI) | payer MEDICARE, SELFPAY ==
--- NOTE | ~2022-09-08 | CT_ITS ---
Clinical Indication: Rectal cancer CT Scan of the Chest, Abdomen, and Pelvis with Contrast: Technique: Contiguous sections were acquired throughout the chest, abdomen, and pelvis after intraven ous administration of 100 cc of Omnipaque 350. Dose reduction technique was used on this scan by uti semajing automated exposure control and iterative reconstruction technique. The dose-length product (DL P) was 1288.14 mGy-cm. COMPARISON: 05/05/2022 Findings: Enlarged, low-density subcarinal lymph node is essentially stable from prior exam. Small calcified bi lateral hilar lymph nodes are again present. No aortic aneurysm or dissection. No large central pulmo nary embolus. There is no evidence of pleural or pericardial effusion. Spiculated lesions in the right perihilar region are stable from prior exam. Additional spiculated le freddy in the right lower lobe is unchanged. Spiculated lesion in the superior segment of the left lowe r lobe is unchanged, with focal coarse calcification present. Subcentimeter nodule in the left upper lobe is unchanged (axial image 61). Suggestion of prior partial left hepatic lobe resection. The liver, spleen, pancreas, gallbladder, ad renals and kidneys are otherwise unremarkable. No evidence of aortic aneurysm. No lymphadenopathy. No bowel obstruction or bowel wall thickening. Rectosigmoid anastomosis noted. Urinary bladder is unremarkable. Large fat-containing left inguinal hernia present extending into the left hemiscrotum. Prostate gland and seminal vesicles are unremarkable. Impression: Stable low-density subcarinal lymphadenopathy, consistent with metastatic lesion, possibly necrotic. Stable spiculated lesions in the right perihilar region, and bilateral lower lobes, as detailed above . Findings could reflect stable metastatic disease versus post radiation change. Large fat-containing left inguinal hernia, similar to prior exam. Reviewed, dictated and finalized at location . 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 Stable spiculated lesions in the right perihilar region, and bilateral lower lo bes, as detailed above. Findings could reflect stable metastatic disease versus post radiation change. Large fat-containing left inguinal hernia, similar to prior exam.
== END 2022-09-08 08:33 | disposition home or self-care (01) ==
PROVIDERS: PCP Family Medicine; Visit Provider Internal Medicine Hematology & Oncology
DX: C21.8 Malignant neoplasm of overlapping sites of rectum, anus and anal canal (principal); R59.0 Localized enlarged lymph nodes; K40.90 Unilateral inguinal hernia, without obstruction or gangrene, not specified as recurrent; R91.8 Other nonspecific abnormal finding of lung field
CPT/HCPCS: 71260; 74177; Q9967

== ENCOUNTER 2023-01-12 07:38 | Outpatient (CLI) | payer MEDICARE, SELFPAY ==
--- NOTE | ~2023-01-12 | CT_ITS ---
EXAMINATION: CT chest abdomen pelvis w con DATE: 01/12/2023 08:20 INDICATION: Malignant neoplasm of overlapping sites of the rectum. TECHNIQUE: Transaxial computed tomographic images of the chest, abdomen, and pelvis were obtained aft er the administration of 100 cc of Omnipaque 350 intravenous contrast. The dose-length product (DLP) was 1067.75 mGy-cm. Automated exposure control and iterative reconstruction technique were employed. COMPARISON: 09/08/2022, 05/05/2022 FINDINGS: CHEST CT: There is stable subcarinal lymphadenopathy. There are stable right perihilar opacities in the upper a nd lower lobes, airspace opacities in the right lower lobe, and airspace opacities in the superior se gment of the left lower lobe. No new airspace opacities are identified. A right internal jugular Port -A-Cath ends with its tip in the distal superior vena cava. No pleural effusion or pneumothorax. The heart size is normal. There is calcified coronary artery atherosclerosis. There are bridging osteophy siddharth at multiple levels in the spine, consistent with diffuse idiopathic skeletal hyperostosis (DISH). ABDOMEN/PELVIS CT: There is a small sliding hiatal hernia. Changes of left hemihepatectomy are again noted. The spleen, pancreas, gallbladder, and adrenal glands are normal. The kidneys are unremarkable. No pathologically enlarged abdominal or pelvic lymph nodes are identified. No free intraperitoneal gas or evidence of bowel obstruction. A moderate volume of colonic stool is present. Surgical anastomoses are noted in t he rectum and small bowel. There is a large left inguinal hernia containing fat. There is moderate ginna mbar spondylosis. IMPRESSION: 1. Stable subcarinal lymphadenopathy, consistent with metastatic disease. 2. Stable airspace opacities of the lungs, consistent with radiation fibrosis. Reviewed, dictated and finalized at location L.
== END 2023-01-12 07:39 | disposition home or self-care (01) ==
PROVIDERS: PCP Family Medicine; Visit Provider Internal Medicine Hematology & Oncology
DX: C21.8 Malignant neoplasm of overlapping sites of rectum, anus and anal canal (principal); R59.0 Localized enlarged lymph nodes
CPT/HCPCS: 71260; 74177; Q9967

== ENCOUNTER 2023-03-23 10:01 | Emergency (ER) | payer MEDICARE, SELFPAY ==
[2023-03-23 10:13] VITALS: BP 131/74; PULSE 52; RESP 16; TEMP 36.2; O2SAT 99
--- NOTE | 2023-03-23 10:31 | ED.GENADULT ---
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 He reports sudden onset 1 week ago of blurry vision in the left eye, foggy vision in the right eye. He reports his gait is unsteady. He denies headache, weakness in any extremity. He denies chest pain, shortness of breath, syncope or near syncope. He reports he had a checkup with his eye doctor about 2 weeks ago when his vision was normal, unchanged from his usual eye glasses prescription. MD complaint: Vision changes Related Data Home Medications Medication Instructions Recorded Confirmed prochlorperazine maleate 10 mg 10 mg PO Q6H PRN Nausea And 07/12/19 03/23/23 tablet Vomiting Allergies Allergy/AdvReac Type Severity Reaction Status Date / Time No Known Allergies Allergy Verified 03/23/23 10:19 Review of Systems Review of Systems: CONSTITUTIONAL: Denies malaise, chills, sweats, or fever. EYES: Reports blurry vision in the left eye, foggy vision of the right eye CARDIOVASCULAR: Denies chest pain, palpitations, or edema. RESPIRATORY: Denies dyspnea. SKIN: Denies rash or itching. MUSCULOSKELETAL: Denies joint pain or myalgia. NEUROLOGIC: Denies numbness, weakness, or headache. Reports unsteady gait All systems reviewed & are unremarkable except as noted in HPI and below PMFSH Past Medical History Medical History Rectal cancer metastasized to liver Rectal cancer metastasized to lung Surgical History Surgical History H/O hemicolectomy H/O resection of liver Family History Family History Mother Family history of Alzheimer's disease Father Family history of heart disease in male family member before age 55 Acute myocardial infarction Other Family history of cardiovascular disease Social History Social History Social History: Single Smoking status: Never smoker Second hand tobacco smoke exposure: No Alcohol intake: current Drinks per week: 2 Substance use: never Substance use type: does not use Living arrangements: alone Occupation/Education: retired 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 Gender identity (if verbalized by the patient): Male Sexual Orientation (if Verbalized by the Patient): Straight or Heterosexual Comments At time of signature, agree with nursing past medical, surgical, social and family history. There is no relevant family history pertinent to the presenting complaint Exam Narrative: GENERAL: Nontoxic-appearing and in no acute distress. HEAD: Normocephalic, atraumatic. EYES: PERRLA, sclera clear. No nystagmus. No right outward movement of the eyes bilaterally ENT: Nares clear. Mucous membranes moist. NECK: Supple. CHEST: No respiratory distress. Speaks in full sentences. HEART: Regular rate and rhythm. Normal peripheral pulses. EXTREMITIES: No edema. Grossly normal strength and sensation. Mild right upper extremity drifting SKIN: Warm, dry, no visible rash. NEURO: Alert and oriented x3. Smile asymmetrical. Gait unsteady PSYCH: Normal mood and affect Course Course Emergency Course: Patient is aware of, understands and agrees to be transferred to the emergency room, patient was advised that he should not drive, he is having a relative, pick him up. Patient agrees to proceed directly to the emergency department. Portions of this record may have been creat
== END 2023-03-23 10:49 | disposition short-term general hospital (02) ==
PROVIDERS: Emergency Provider Nurse Practitioner; PCP Family Medicine
DX: R26.81 Unsteadiness on feet (principal); C20 Malignant neoplasm of rectum; C78.7 Secondary malignant neoplasm of liver and intrahepatic bile duct; C78.00 Secondary malignant neoplasm of unspecified lung; Z79.60 Long term (current) use of unspecified immunomodulators and immunosuppressants
CPT/HCPCS: 99212; G0463

== ENCOUNTER 2023-03-23 12:29 | Emergency (ER) | payer MEDICARE, SELFPAY ==
[2023-03-23] VITALS (13 sets, daily range): BP systolic 120–154; BP diastolic 69–88; PULSE 46–54; RESP 12–23; TEMP 36.1; O2SAT 95–100
--- NOTE | ~2023-03-23 | CT_ITS ---
EXAMINATION: CT brain wo con INDICATION: Right facial droop COMPARISON: None TECHNIQUE: Standard unenhanced head CT. The dose-length product (DLP) was 605.33 mGy-cm. The mA was a djusted according to patient size. Iterative reconstruction technique was employed. FINDINGS: There is a 3.1 x 2.0 cm mass of the right frontal lobe with surrounding vasogenic edema. Th ere is a 1.2 cm mass of the fourth ventricle. There are approximately 5 mm of [id number] frontal m idline shift adjacent to the mass. There is no acute intraparenchymal hemorrhage. No evidence of acut e infarction. There is mild periventricular and subcortical hypodensity probably related to small ves seth ischemic disease. There is mild prominence of the sulci and ventricles related to cerebral atroph y. Intracranial calcified cerebral atherosclerosis is noted. There are no extra-axial collections. Th e orbits and soft tissues are unremarkable. The visualized sinuses and mastoid air cells are well aer ated. IMPRESSION: 1. Masses in the left frontal lobe and fourth ventricle, consistent with metastatic disease. 2. Age related findings. These findings were discussed with Dr. Tra Nguyễn MD in the Emergency Department at 1340 hour s on 03/23/2023. Reviewed, dictated and finalized at location A. IMPRESSION: 1. Masses in the left frontal lobe and fourth ventricle, consistent with metast atic disease. 2. Age related findings. These findings were discussed with Dr. Tra Nguyễn MD in the Emergency D epartment at 1340 hours on 03/23/2023.
[2023-03-23 13:44] LABS: Basophils Percent Auto 0.5 % (0.2-1.2); Eosinophils Absolute Auto 0.1 K/mm3 (0-0.3); Eosinophils Percent Auto 2.1 % (0-4.4); Hematocrit 37.7 % (42.0-52.0); Hemoglobin 12.3 g/dL (14.0-18.0); Immature Granulocyte Absolute 0.01 K/mm3 (0.00-0.031); Immature Granulocyte Percent A 0.2 % (0-0.5); Lymphocytes Absolute Auto 0.88 K/mm3 (0.9-3.2); Lymphocytes Percent Auto 15.4 % (18.3-44.2); Mean Corpuscular HGB Conc 32.6 g/dl (32-36); Mean Corpuscular Hemoglobin 31.5 pg (26-34); Mean Corpuscular Volume 96.7 fl (80-100); Mean Platelet Volume 8.2 fl (7.4-10.4); Monocytes Absolute Auto 0.4 K/mm3 (0.1-0.6); Monocytes Percent Auto 6.1 % (2.6-8.5); Neutrophils Absolute Auto 4.3 K/mm3 (1.3-6.7); Neutrophils Percent Auto 75.7 % (45.5-73.1); Platelet Count Result 179 k/mm3 (150-375); Red Cell Distribution Width 14.2 % (11.5-14.5); White Blood Count 5.7 K/mm3 (4.5-10.0)
[2023-03-23 13:55] LABS: Partial Thromboplastin Time 50.2 SECONDS (22.3-36.8); Prothrombin Time 14.1 Seconds (11.1-14.7)
[2023-03-23 13:56] LABS: Alanine Aminotransferase 17 U/L (6-50); Alkaline Phosphatase 78 U/L (38-126); Anion Gap 5 mmol/L (8-16); Aspartate Amino Transferase 25 U/L (17-59); Bilirubin,Total 0.8 mg/dL (0.2-1.3); Blood Urea Nitrogen 13 mg/dL (9-20); Calcium 8.6 mg/dL (8.4-10.2); Carbon Dioxide 27 mmol/L (22-30); Chloride 105 mmol/L (98-107); Estimated CRCL calculation 64 ml/min; Estimated Glomerular Filt Rate > 60; Glucose 94 mg/dL (65-110); Potassium 3.8 mmol/L (3.4-5.0); Sodium 137 mmol/L (137-145)
--- NOTE | 2023-03-23 13:58 | ED.GENADULT ---
HPI - General Adult General Chief complaint: Eye Problems Stated complaint: vision problems Time Seen by Provider: 03/23/23 12:45 History of Present Illness HPI narrative: Patient is a 73-year-old male who presents ER with visual difficulties. He has been unable to look to the right side for the last week. He also noticed that his right cheek does not move as well. Patient is known to have metastatic rectal cancer over the last 7 years and has been receiving maintenance chemotherapy through Dr. Frederick. He recently had a PET scan that showed stable lesions but he has not had any imaging of his head. He denies any focal weakness or numbness to an arm or leg. He reports occasional balance issues but he is ambulated well today. Related Data Home Medications Medication Instructions Recorded Confirmed prochlorperazine maleate 10 mg 10 mg PO Q6H PRN Nausea And 07/12/19 03/23/23 tablet Vomiting Allergies Allergy/AdvReac Type Severity Reaction Status Date / Time No Known Allergies Allergy Verified 03/23/23 10:19 Review of Systems Review of Systems: All systems reviewed & are unremarkable except as noted in HPI and below Constitutional: Constitutional: Denies chills, Denies fatigue and Denies fever(s) Eyes: Eyes: Reports change in vision and Denies photophobia ENT: Denies nasal congestion and Denies sore throat Integumentary/Breasts: Skin/Breast: Denies erythema and Denies rash Neurologic: Denies confusion, Reports dizziness, Denies syncope, Denies headache(s), Reports focal weakness and Denies numbness PMFSH Past Medical History Medical History Rectal cancer metastasized to liver Rectal cancer metastasized to lung Surgical History Surgical History H/O hemicolectomy H/O resection of liver Family History Family History Mother Family history of Alzheimer's disease Father Family history of heart disease in male family member before age 55 Acute myocardial infarction Other Family history of cardiovascular disease Social History Social History Social History: Single Smoking status: Never smoker Second hand tobacco smoke exposure: No Alcohol intake: current Drinks per week: 2 Substance use: never Substance use type: does not use Living arrangements: alone Occupation/Education: retired 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 Gender identity (if verbalized by the patient): Male Sexual Orientation (if Verbalized by the Patient): Straight or Heterosexual Exam Narrative: GENERAL: Well-appearing, well-nourished, and in no acute distress. HEAD: Normocephalic, atraumatic. EYES: Pupils equal round and reactive to light, patient unable to gaze rightward with either eye. ENT: Mucous membranes moist. CHEST: Clear to auscultation. No respiratory distress. HEART: Regular rate and rhythm. Normal peripheral pulses. ABDOMEN: Soft, nontender, nondistended. EXTREMITIES: Normal range of motion. No edema. SKIN: Warm, dry, no rash. NEURO: No upper or lower extremity drift. Patient has right facial weakness with smiling. Eyebrows raise symmetrically. No expressive aphasia or dysarthria. Patient does have gaze palsy. Alert and oriented x3. PSYCH: Normal mood and affect. Course Course Emergency Course: 1358: I discussed the case with Dr. Frederick the patient's oncologist. He would like the patient to receive IV Keppra and dexamethasone while he is here at the hospital. He feels patient is appropriate for discharge home and he would like the patient to receive oral Decadron 4 mg 3 times a day as well as Keppra 500 mg twice a day. He would like the patient contact his office tomorrow morning and they will arrange outpatie
[2023-03-23] MEDS: levETIRAcetam 1000MG/NACL100ML 1,000 MG/100 ML BAG 400 MG IVPB (14:33)
[2023-03-23] MEDS: CENTRAL LINE FLUSH 10 ML IV PUSH (15:04)
[2023-03-23] MEDS: HEPARIN SODIUM LOCK FLUSH 500 UNITS/5 ML SYRINGE IV PUSH (15:05)
== END 2023-03-23 15:17 | disposition home or self-care (01) ==
PROVIDERS: Emergency Provider Emergency Medicine; PCP Family Medicine
DX: G93.89 Other specified disorders of brain (principal); C20 Malignant neoplasm of rectum; C78.00 Secondary malignant neoplasm of unspecified lung; C78.7 Secondary malignant neoplasm of liver and intrahepatic bile duct; Z90.49 Acquired absence of other specified parts of digestive tract
CPT/HCPCS: 36415; 70450; 80053; 85025; 85610; 85730; 96365; 96375; 99284; J1100; J1953

== ENCOUNTER 2023-04-03 08:16 | Outpatient (CLI) | payer MEDICARE, SELFPAY ==
--- NOTE | ~2023-04-03 | MR_ITS ---
EXAMINATION: MR brain/brain stem wo/w con DATE: 04/03/2023 09:56 INDICATION: Brain metastases. TECHNIQUE: Magnetic resonance imaging (MRI) of the brain and brainstem was performed without and with 16 mL MultiHance intravenous contrast. COMPARISON: Head CT 03/23/2023 FINDINGS: There is no acute ischemic infarct. There is a 1.7 cm enhancing mass involving the william. Th ere is a 3.1 cm enhancing mass in the left frontal lobe. There is a 4 mm enhancing mass in left cereb ellum. There is vasogenic edema around these masses. The 2 larger masses contain either microhemorrha ge or calcifications characterized by decreased T2*weighted signal intensity. There is 4 mm rightward displacement of the cingulate gyrus across the midline anteriorly. There are scattered areas of nons pecific increased T2-weighted signal intensity in the cerebral white matter, which is within normal l imits for the patient's age. There is no acute ischemic infarct. The ventricles are normal in size. T he orbits are normal. The paranasal sinuses are clear. The mastoid air cells are normal. IMPRESSION: 1. Three brain masses, consistent metastatic disease. Reviewed, dictated and finalized at location E.
== END 2023-04-03 08:17 | disposition home or self-care (01) ==
PROVIDERS: PCP Family Medicine; Visit Provider Radiology Radiation Oncology
DX: C79.31 Secondary malignant neoplasm of brain (principal)
CPT/HCPCS: 70553; A9577

== ENCOUNTER 2023-05-11 12:45 | Emergency (ER) | payer MEDICARE, SELFPAY ==
--- NOTE | ~2023-05-11 | CT_ITS ---
EXAMINATION: CT brain wo con INDICATION: Altered mental status, history of brain metastases COMPARISON: 03/23/2023; MRI, 04/03/2023 TECHNIQUE: Standard unenhanced head CT. The dose-length product (DLP) was 681.00 mGy-cm. The mA was a djusted according to patient size. Iterative reconstruction technique was employed. FINDINGS: No acute intraparenchymal hemorrhage. There is a 2.1 cm mass of the william which is increased in size. There is a 3.3 x 2.4 cm mass of the left frontal lobe with increase in size. Vasogenic stewart a surrounds the masses with interval increase in the brainstem. The small left cerebellar mass descri bed on MRI is not definitely identified. No evidence of acute infarction. There is mild periventricul ar and subcortical hypodensity probably related to small vessel ischemic disease. There is mild promi nence of the sulci and ventricles related to cerebral atrophy. Intracranial calcified cerebral athero sclerosis is noted. No extra-axial collections. There are 5 mm of [id number] midline shift. The or bits and soft tissues are unremarkable. The visualized sinuses and mastoid air cells are well aerated . IMPRESSION: 1. Metastases of the left frontal lobe and william with increase in size and associated increase in vaso genic edema in the brainstem. Previously described left cerebellar mass not definitely identified. 2. Age related findings. Reviewed, dictated and finalized at location A. IMPRESSION: 1. Metastases of the left frontal lobe and william with increase in size and assoc iated increase in vasogenic edema in the brainstem. Previously described left c erebellar mass not definitely identified. 2. Age related findings.
--- NOTE | ~2023-05-11 | XR_ITS ---
EXAMINATION: XR chest 1V DATE: 05/11/2023 16:43 INDICATION: Altered mental status. Rectal cancer with metastases. TECHNIQUE: frontal view of the chest was obtained. COMPARISON: Chest CT dated 01/12/2023 FINDINGS: The inflated masslike opacities at the bilateral gail and right infrahilar region consistent with kno wn metastatic disease. A few small scattered calcified pulmonary nodules consistent with old granulom atous disease. Remainder of the lungs are clear with no pulmonary edema, pleural effusion or pneumoth orax. Heart size is normal. Right subclavian central venous port catheter with distal tip near the quiles perior cavoatrial junction. IMPRESSION: 1. Stable spiculated masses in the bilateral perihilar and right infrahilar regions consistent with r eported metastatic disease. No acute cardiopulmonary disease. Reviewed, dictated and finalized at location A. IMPRESSION: 1. Stable spiculated masses in the bilateral perihilar and right infrahilar reg ions consistent with reported metastatic disease. No acute cardiopulmonary dise ase.
[2023-05-11 13:07] VITALS: BP 125/91; PULSE 66; RESP 20; TEMP 36.3; O2SAT 100
--- NOTE | 2023-05-11 13:07 | ECG_ITS ---
Measurements Intervals [place] Rate: 65 P: 47 [place]: 152 QRS: 32 QRSD: 78 T: -77 QT: 412 QTc: 430 Interpretive Statements SINUS RHYTHM POSSIBLE RIGHT VENTRICULAR CONDUCTION DELAY [RSR (QR) IN V1/V2] ST DEVIATION AND MODERATE T-WAVE ABNORMALITY, CONSIDER ANTEROLATERAL ISCHEMIA [-0.1+ mV T WAVE IN V3-V6] ST DEVIATION AND MODERATE T-WAVE ABNORMALITY, CONSIDER INFERIOR ISCHEMIA [-0.1+ mV T WAVE IN II/aVF] NO PREVIOUS ECG AVAILABLE FOR COMPARISON Electronically Signed On 05-12-2023 11:28:32 CDT by Ekaterina Pagan M.D.
[2023-05-11 13:30] LABS: Basophils Percent Auto 0.2 % (0.2-1.2); Eosinophils Absolute Auto 0.1 K/mm3 (0-0.3); Eosinophils Percent Auto 1.6 % (0-4.4); Hemoglobin 16.3 g/dL (14.0-18.0); Immature Granulocyte Absolute 0.04 K/mm3 (0.00-0.031); Immature Granulocyte Percent A 0.6 % (0-0.5); Lymphocytes Absolute Auto 0.54 K/mm3 (0.9-3.2); Lymphocytes Percent Auto 8.5 % (18.3-44.2); Mean Corpuscular HGB Conc 32.6 g/dl (32-36); Mean Corpuscular Hemoglobin 31.8 pg (26-34); Mean Corpuscular Volume 97.5 fl (80-100); Mean Platelet Volume 8.8 fl (7.4-10.4); Monocytes Absolute Auto 0.4 K/mm3 (0.1-0.6); Monocytes Percent Auto 6.6 % (2.6-8.5); Neutrophils Absolute Auto 5.2 K/mm3 (1.3-6.7); Neutrophils Percent Auto 82.5 % (45.5-73.1); Platelet Count Result 117 k/mm3 (150-375); Red Blood Count 5.13 M/mm3 (4.6-6.20); Red Cell Distribution Width 13.7 % (11.5-14.5); White Blood Count 6.4 K/mm3 (4.5-10.0)
[2023-05-11 13:40] LABS: Alanine Aminotransferase 117 U/L (6-50); Albumin Level 3.7 g/dL (3.5-5.1); Alkaline Phosphatase 88 U/L (38-126); Anion Gap 6 mmol/L (8-16); Aspartate Amino Transferase 59 U/L (17-59); Bilirubin,Total 2.1 mg/dL (0.2-1.3); Blood Urea Nitrogen 28 mg/dL (9-20); Calcium 8.7 mg/dL (8.4-10.2); Carbon Dioxide 30 mmol/L (22-30); Chloride 105 mmol/L (98-107); Estimated CRCL calculation 62 ml/min; Estimated Glomerular Filt Rate > 60; Glucose 98 mg/dL (65-110); Potassium 3.8 mmol/L (3.4-5.0); Sodium 141 mmol/L (137-145)
[2023-05-11 13:45] LABS: Partial Thromboplastin Time 26.4 SECONDS (22.3-36.8); Prothrombin Time 14.2 Seconds (11.1-14.7)
[2023-05-11 14:41] LABS: Appearance Urine Clear (Clear); Bacteria Urine None Seen /hpf; Bilirubin Urine 1+ (Negative); Blood Urine Negative (Negative); Color Urine Dark Yellow (Yellow); Glucose Urine UA Negative (Negative); Ketones Urine Negative (Negative); Leukocyte Esterase Ur Trace LEU/UL (Negative); Nitrate Urine Negative (Negative); Non Pathogenic Casts 0-2; Protein Urine Negative (Negative); RBC Urine 0-2 /hpf (0-2); Specific Grav Ur 1.021 (1.001-1.035); Squamous Epithelial Cell Urine None seen /hpf (Few); WBC Urine 0-5 /hpf
[2023-05-11 14:46] LABS: Add Urine Microscopic? YES
[2023-05-11 15:22] VITALS: PULSE 63
--- NOTE | 2023-05-11 16:42 | ED.AMS ---
HPI - Altered Mental Status General Chief Complaint: Altered Mental Status Stated Complaint: AMS Time Seen by Provider: 05/11/23 14:08 Source: EMS Mode of arrival: EMS Limitations: clinical condition History of Present Illness HPI narrative: Patient is 73 years old white male came from intermediate with change mental status. Patient normally awake, alert and oriented x4, today is oriented to his name only and more lethargic than usual. History of cancer stage IV with brain metastasis. Patient is full code.. MRI brain on April 03, 2023 showed 3 brain masses consistent with metastatic disease Related Data Home Medications Medication Instructions Recorded Confirmed prochlorperazine maleate 10 mg 10 mg PO Q6H PRN Nausea And 07/12/19 04/06/23 tablet Vomiting Allergies Allergy/AdvReac Type Severity Reaction Status Date / Time No Known Allergies Allergy Verified 04/06/23 10:45 Review of Systems Review of Systems: ROS unobtainable: Yes unobtainable due to medical condition and unobtainable due to mental status PMFSH Past Medical History Medical History Rectal cancer metastasized to liver Rectal cancer metastasized to lung Surgical History Surgical History H/O hemicolectomy H/O resection of liver Family History Family History Mother Family history of Alzheimer's disease Father Family history of heart disease in male family member before age 55 Acute myocardial infarction Other Family history of cardiovascular disease Social History Social History Social History: Single Smoking status: Never smoker Second hand tobacco smoke exposure: No Alcohol intake: current Drinks per week: 2 Substance use: never Substance use type: does not use Living arrangements: alone Occupation/Education: retired 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 Gender identity (if verbalized by the patient): Male Sexual Orientation (if Verbalized by the Patient): Straight or Heterosexual Exam Narrative: General appearance: Well-developed, well-nourished, lethargic, confused, mumbling, does not follow verbal commands Skin: Normal color Head: Normocephalic, nontraumatic Eyes: Clear conjunctiva ENT: Dry oral cavity Neck: Supple, nontender Chest and respiratory: Airway patent, no respiratory distress, no accessory muscle use Heart: Regular rate/rhythm Abdomen: Soft, nontender, no organomegaly, quiet bowel sounds Vascular: Normal peripheral pulses, normal capillary refill. Musculoskeletal: Normal range of motion, nontender back Neurologic: Alert and oriented to his name only Course Reevaluation(s) Reevaluation #1: Patient still confused, oriented to his name only, no acute changes compared to on arrival to the ED. Date: 05/11/23 Time: 17:49 Consultations Consultation #1: DR MORENO No medicine or any other medical intervention is going to work on the patient right now patient need to be hospice Date: 05/11/23 Time: 17:12 Vital Signs Vital signs: Vital Signs Temperature 36.3 C L 05/11/23 13:07 Pulse Rate 66 05/11/23 13:07 Respiratory Rate 20 05/11/23 13:07 Blood Pressure 125/91 H 05/11/23 13:07 Pulse Oximetry 100 05/11/23 13:07 Oxygen Delivery Room Air 05/11/23 13:07 Temperature 36.3 C L 05/11/23 13:07 Pulse Rate 62 05/11/23 17:36 Respiratory Rate 17 05/11/23 17:36 Blood Pressure 138/88 05/11/23 17:36 Pulse Oximetry 98 05/11/23 17:36 Oxygen D
[2023-05-11 16:49] LABS: Creatine Kinase 66 U/L (55-170)
[2023-05-11 17:28] LABS: Amphetamine Screen Urine Negative (Negative); Barbiturate Screen Urine Negative (Negative); Benzodiazepines Screen Urine Negative (Negative); Cannabinoid Screen Urine Negative (Negative); Cocaine Screen Urine Negative (Negative); Methadone Screen Urine Negative (Negative); Opiate Screen Urine Negative (Negative); Phencyclidine Screen Urine Negative (Negative)
[2023-05-11 17:36] VITALS: BP 138/88; PULSE 62; RESP 17; O2SAT 98
--- NOTE | 2023-05-11 18:10 | PCCCNOTE ---
Referral received for hospice information. Pt is a resident at [facility]. His friend/POA Nneka Lopez, , is requesting [facility]. Call placed to [facility] and they do service [facility]. Referral faxed with Nneka's contact information. Nneka is aware that pt will transfer back to [facility] this evening and [facility] hospice will contact her tomorrow (05/12/23) to arrange a meeting. She agreed with the plan and will call back if doesn't hear from them by tomorrow. ER provider informed of plan.
[2023-05-11 18:22] VITALS: BP 133/93; PULSE 61; RESP 16; TEMP 36.4; O2SAT 98
== END 2023-05-11 18:45 | disposition hospice, home (50) ==
PROVIDERS: Emergency Medicine; Emergency Provider Emergency Medicine; PCP Family Medicine
DX: R41.82 Altered mental status, unspecified (principal); C79.31 Secondary malignant neoplasm of brain; C78.7 Secondary malignant neoplasm of liver and intrahepatic bile duct; C78.00 Secondary malignant neoplasm of unspecified lung; C20 Malignant neoplasm of rectum; Z51.5 Encounter for palliative care; Z90.49 Acquired absence of other specified parts of digestive tract; Z90.89 Acquired absence of other organs; R94.31 Abnormal electrocardiogram [ECG] [EKG]; Z79.899 Other long term (current) drug therapy
CPT/HCPCS: 36415; 70450; 71045; 80053; 80307; 81001; 82550; 85025; 85610; 85730; 93005; 99284